=== PATIENT | female | born 1965 | race Caucasian/White ===

== ENCOUNTER 2020-03-17 11:15 | Emergency (ER) | payer OTHER ==
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
[2020-03-17] MEDS: Bacitracin/Neomycin/Polymyxin B Oint 0.9 GM U/D Packet ONE (11:43)
[2020-03-17] MEDS: Bacitracin/Neomycin/Polymyxin B Oint 0.9 GM U/D Packet TOP ONE (11:45)
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
== END 2020-03-17 12:40 | disposition home or self-care (01) ==
LOC: KA.ED 11:15
DX: S00.01XA Abrasion of scalp, initial encounter (principal); M62.838 Other muscle spasm; V23.4XXA Motorcycle driver injured in collision with car, pick-up truck or van in traffic accident, initial encounter; Y92.410 Unspecified street and highway as the place of occurrence of the external cause
CPT/HCPCS: 70450; 72125; 99284-25